=== PATIENT | male | born 1990 | race Caucasian/White ===

== ENCOUNTER 2021-04-16 02:20 | Emergency (ER) | payer OTHER ==
[~2021-04-16] VITALS: Ht 175.3 cm; Wt 99.8 kg
[2021-04-16 02:30] VITALS: BP 140/77
--- NOTE | 2021-04-16 02:33 | NUR ---
TO LOBBY A/W BED AMBULATORY
[2021-04-16] MEDS ORDERED: ACETAMINOPHEN EXTRA STRENGTH 500 MG TAB PO ONE (02:35)
--- NOTE | 2021-04-16 02:45 | NUR ---
PT C/O FEVER X 3 DAYS PT STATES FEVER SEEMS TO ONLY START AT NIGHT. PT DENIES DIZZINESS, V/D/N AND HEADACHE. MEDICAL HX: PRE HYPERTENSION AND PTSD MEDICATIONS: ROCKY PRIM, XANAX, MIRTAZIPINE NKA
--- NOTE | 2021-04-16 03:00 | NUR ---
PT AMBULATED TO BATHROOM TO GIVE URINE SAMPLE, URINE SAMPLE COLLECTED FOR URINE DIP.
[2021-04-16] MEDS ORDERED: NACL 0.9% 1,000 ML IV ONE (03:10)
--- NOTE | 2021-04-16 03:15 | NUR ---
CARLITOS AND FLU SWAB COLLECTED AND SENT TO LAB.
--- NOTE | 2021-04-16 03:35 | NUR ---
IV 20 G INSERTED IN LEFT AC AND NS STARTED.
[2021-04-16 03:57] LABS: BASOPHILS % (AUTO) 0.4 % (0.0-2.0); HEMATOCRIT 45.6 % (36-52); HEMOGLOBIN 16.2 g/dL (12.0-18.0); LYMPHOCYTES # (AUTO) 0.6 K/uL (2.0-11.5); LYMPHOCYTES % (AUTO) 12.9 % (20.5-51.1); MEAN CORPUSCULAR HEMOGLOBIN 33 pg (27-31); MEAN CORPUSCULAR HGB CONC 36 g/dL (33-37); MEAN CORPUSCULAR VOLUME 92.4 fL (80-94); MONOCYTES # (AUTO) 0.4 K/uL (0.8-1.0); MONOCYTES % (AUTO) 9.8 % (1.7-9.3); NEUTROPHILS # (AUTO) 3.4 K/uL (1.8-7.7); NEUTROPHILS % (AUTO) 76.9 % (42.2-75.2); PLATELET COUNT (AUTO) 132 K/uL (140-450); RED BLOOD CELL COUNT(AUTO) 4.94 MIL/uL (4.20-6.10); RED CELL DISTRIBUTION WIDTH 13.2 % (11.6-13.7); WHITE BLOOD COUNT (AUTO) 4.4 K/uL (4.8-10.8)
--- NOTE | 2021-04-16 04:01 | NUR ---
ORAL TEMP 98.4.
[2021-04-16 04:22] LABS: CARBON DIOXIDE 25.7 mmol/L (21-32); CREATININE 1.1 mg/dL (0.6-1.3); POTASSIUM 3.7 mmol/L (3.5-5.1)
[2021-04-16 04:31] LABS: ALBUMIN 3.9 g/dL (3.4-5.0); BILIRUBIN,DIRECT 0.1 mg/dL (0.0-0.3); TOTAL BILIRUBIN 0.6 mg/dL (0.0-1.0)
--- NOTE | 2021-04-16 04:50 | NUR ---
Patient discharged with v/s stable. Written and verbal after care instructions given and explained. Patient verbalized understanding. Ambulatory with steady gait. All questions addressed prior to discharge. Advised to follow up with PMD.
[2021-04-16 04:59] VITALS: BP 138/82
== END 2021-04-16 04:50 | disposition home or self-care (01) ==
LOC: MED 02:20
DX: U07.1 COVID-19 (principal)
CPT/HCPCS: 36415; 71045; 80048; 80076; 81002; 83690; 84484; 85025; 87426; 87804; 93005; 96360; 99285; J7030; Q0092

== ENCOUNTER 2021-04-19 19:06 | Observation (INO) | payer OTHER, SELFPAY ==
[~2021-04-19] VITALS: Ht 175.3 cm; Wt 99.8 kg
[2021-04-19 19:15] VITALS: BP 135/81
--- NOTE | 2021-04-19 20:40 | NUR ---
PT TAKEN TO BED 3
[2021-04-19 20:49] LABS: BASOPHILS % (AUTO) 0.2 % (0.0-2.0); HEMATOCRIT 49.2 % (36-52); HEMOGLOBIN 17.3 g/dL (12.0-18.0); LYMPHOCYTES # (AUTO) 0.3 K/uL (2.0-11.5); LYMPHOCYTES % (AUTO) 4.9 % (20.5-51.1); MEAN CORPUSCULAR HEMOGLOBIN 32 pg (27-31); MEAN CORPUSCULAR HGB CONC 35 g/dL (33-37); MEAN CORPUSCULAR VOLUME 92.4 fL (80-94); MONOCYTES # (AUTO) 0.3 K/uL (0.8-1.0); NEUTROPHILS # (AUTO) 5.8 K/uL (1.8-7.7); NEUTROPHILS % (AUTO) 90.9 % (42.2-75.2); PLATELET COUNT (AUTO) 167 K/uL (140-450); RED BLOOD CELL COUNT(AUTO) 5.33 MIL/uL (4.20-6.10); RED CELL DISTRIBUTION WIDTH 13.1 % (11.6-13.7); WHITE BLOOD COUNT (AUTO) 6.3 K/uL (4.8-10.8)
[2021-04-19 21:05] LABS: FIBRINOGEN > 500 mg/dL (200-400)
[2021-04-19 21:16] LABS: ANION GAP 17.1 (8-16); ASPARTATE AMINOTRANSFERASE 55 U/L (15-37); CHLORIDE 100 mmol/L (98-107); CREATININE 1.1 mg/dL (0.6-1.3); GFR ARICAN-AMERICAN 102 mL/min (>90); GLUCOSE 100 mg/dL (74-106); LACTATE DEHYDROGENASE 408 U/L (85-227); POTASSIUM 4.1 mmol/L (3.5-5.1); SODIUM SERUM 139 mmol/L (136-145); TOTAL BILIRUBIN 0.5 mg/dL (0.0-1.0); UREA NITROGEN, BLOOD 8 mg/dL (7-18)
--- NOTE | 2021-04-19 21:21 | NUR ---
30 YO/M BIB SELF W C/O OF WORSENING SOB AND DIFF BREATHING ONGOING X1 WEEK S/P +COVID RESULTS. PT ALSO CO GENERALIZED CHEST PAIN PRESSURE LIKE 11/21 NON-RAD, +BACK PAIN WHICH PT RELATES TO COUGHING, +GENERALIZED ABDOMINAL PAIN W AN EPISODE OF WATERY STOOL, + DIZZYNESS, FATIGUE, + FEVER. PT DENIES N/V/D. PT O2 SAT 95% ON RA, BREATHING EVEN AND UNLABORED. VSS. PT REPORTS TAKING ASA 325MG X3 TABS, + IBUPROFEN 800MG BOTH MEDS TAKEN AT 1000 TODAY. PT LAYING IN BED SUPINE LOCKED IN LOWEST POSITION W X2 SIDERAILS UP. BREATHING EVEN AND UNLABORED. NAD NOTED, WILL CONTINUE TO MONITOR. RT AT BEDSIDE. PMH: FIBROMYALGIA, PTSD, ANXIETY DISORDER, SCIATICA NKA
[2021-04-19 21:25] LABS: D-DIMER 269 ng/ml (0-400)
[2021-04-19] MEDS ORDERED: DEXAMETHASONE 10 MG/ML VIAL IVP ONE (21:45)
[2021-04-19] MEDS ORDERED: cefTRIAXone 2,000 MG in DEXTROSE 5% 100 ML IV ONE (21:45)
--- NOTE | 2021-04-19 22:00 | NUR ---
X-Ray at bedside.
[2021-04-19] MEDS ORDERED: cefTRIAXone 2,000 MG VIAL ONE (22:01)
[2021-04-19 22:31] LABS: APPEARANCE,URINE CLEAR (CLEAR); BILIRUBIN,URINE 1+ (NEGATIVE); BLOOD, URINE 1+ (NEGATIVE); COLOR,URINE YELLOW (YELLOW); LEUKOCYTE ESTERASE ,URINE NEGATIVE (NEGATIVE); NITRITE, URINE NEGATIVE (NEGATIVE); UGLUCOSE NEGATIVE (NEGATIVE)
[2021-04-19] MEDS ORDERED: ALPR0.5T2 PO (22:41)
[2021-04-19] MEDS ORDERED: MAG SULF 2000 MG/WATER PREMIX 50 ML IV PRN ×2 (22:50→23:00)
[2021-04-19] MEDS ORDERED: POTASSIUM CHLORIDE 10 MEQ TABER PO PRN ×2 (22:50→23:00)
[2021-04-19] MEDS ORDERED: KCL 20 MEQ/WATER INJ PREMIX 200 ML IV PRN ×2 (22:50→23:00)
[2021-04-19] MEDS ORDERED: ACETAMINOPHEN 325 MG TAB PO PRN ×2 (22:50→23:00)
[2021-04-19] MEDS ORDERED: AZITHROMYCIN 500 MG in DEXTROSE 5% 250 ML IV SCH ×2 (22:50→23:00)
[2021-04-19] MEDS ORDERED: ONDANSETRON 4 MG/2 ML VIAL IVP PRN ×2 (22:50→23:00)
[2021-04-19] MEDS ORDERED: MAGNESIUM OXIDE 400 MG TAB PO PRN ×2 (22:50→23:00)
[2021-04-19 22:51] LABS: RBC,URINE 0-5 /HPF (0-5); WBC,URINE 0-5 /HPF (0-5)
--- NOTE | 2021-04-19 23:10 | NUR ---
PT C/O PF FEELING HOT, TEMPORAL TEMP AT 103 F.
[2021-04-19] MEDS ORDERED: AZITHROMYCIN 500 MG INJ VIAL IV ONE (23:37)
--- NOTE | 2021-04-20 00:21 | NUR ---
PT APPEARS TO BE RESTING W EYES CLOSED. BREATHING EVEN AND UNLABORED. NAD NOTED, WILL CONTINUE TO MONITOR. VSS.
--- NOTE | 2021-04-20 01:30 | NUR ---
SPOKE W PT MOTHER TO PROVIDE STATUS ON PT STATUS.
--- NOTE | 2021-04-20 01:33 | NUR ---
PT MOTHER DROPPED OF TRAFFIC REPORTER FOR PT.
--- NOTE | 2021-04-20 02:14 | NUR ---
PT APPEARS TO BE RESTING W EYES CLOSED. BREATHING EVEN AND UNLABORED. NAD NOTED, WILL CONTINUE TO MONITOR. VSS.
--- NOTE | 2021-04-20 02:14 | NUR ---
Pt report given to CHARLES COLLINS. Transfer of care at this time.
--- NOTE | 2021-04-20 02:33 | NUR ---
PT DENIES ANY PAIN AT THIS TIME, PT REPORTS FEELING OK, NO LONGER FEELING HOT. PT REPORTS HE WAS ABLE TO GET SOME REST. VSS. BREATHING EVEN AND UNLABORED. NAD NOTED, WILL CONTINUE TO MONITOR.
--- NOTE | 2021-04-20 02:55 | NUR ---
Patient will be admitted to care of DR. SCHNEIDER. Admited to TELEMETRY. Will go to room 120A. Belongings list completed. Report to CHARLES COLLINS.
[2021-04-20 03:00] VITALS: BP 136/70
--- NOTE | 2021-04-20 03:30 | NUR ---
PT BROUGHT UP BY [facility] REPORT RECEIVED BY ER NURSE [facility] PT AOX4 ON ROOM AIR HERE FOR COVID PNA. PT HERE BEFORE TESTED POSITIVE AND CAME BACK DUE TO WORSENING SOB. WHEELED TO ROOM 120 AND AMBULATED WITH STEADY GAIT TO BED A. MRSA SWAB DONE. ADMISSION QUESTIONS ASKED. PT PLACED ON TELE AND CONTINUOUS PULSE O2. 02 REMAINS AT 95-96%. ALL ORDERED PRECAUTIONS IN PLACE.
[2021-04-20 05:58] LABS: HEMATOCRIT 46.2 % (36-52); HEMOGLOBIN 15.9 g/dL (12.0-18.0); LYMPHOCYTES # (AUTO) 0.3 K/uL (2.0-11.5); LYMPHOCYTES % (AUTO) 8.4 % (20.5-51.1); MEAN CORPUSCULAR HEMOGLOBIN 32 pg (27-31); MEAN CORPUSCULAR HGB CONC 34 g/dL (33-37); MEAN CORPUSCULAR VOLUME 93.5 fL (80-94); MONOCYTES # (AUTO) 0.2 K/uL (0.8-1.0); MONOCYTES % (AUTO) 4.1 % (1.7-9.3); NEUTROPHILS # (AUTO) 3.4 K/uL (1.8-7.7); NEUTROPHILS % (AUTO) 87.5 % (42.2-75.2); PLATELET COUNT (AUTO) 151 K/uL (140-450); RED BLOOD CELL COUNT(AUTO) 4.94 MIL/uL (4.20-6.10); WHITE BLOOD COUNT (AUTO) 3.9 K/uL (4.8-10.8)
--- NOTE | 2021-04-20 06:30 | NUR ---
ROUNDS DONE PT IN BED 02 REMAINS ABOUT 95-96% ON ROOM AIR. ALL REQUESTS ATTENDED BY STAFF AND CALL BARKER IN REACH.
[2021-04-20 06:39] LABS: ALBUMIN 3.4 g/dL (3.4-5.0); ANION GAP 14.1 (8-16); CARBON DIOXIDE 25.9 mmol/L (21-32); CHOL/HDL RATIO 4.2 (1-4.5); MAGNESIUM 2.4 mg/dL (1.8-2.4); TOTAL BILIRUBIN 0.3 mg/dL (0.0-1.0)
--- NOTE | 2021-04-20 07:25 | NUR ---
RECEIVED PATIENT FROM [facility]REATMENT INSTALLER NURSE FOR CONTINUITY OF CARE. A/A/O X4. ON TELE MONITOR. RESPIRATORY EVEN AND UNLABORED, ON ROOM AIR. NO SIGN OF DISTRESS NOTED. SKIN WARM, DRY, NON DIAPHORETIC. IV ON LEFT AC 20G, INTACT AND PATENT, SALINE LOCK. PATIENT DENIES ANY PAIN OR DISCOMFORT. ABLE TO MAKE NEED KNOWN. PLAN OF CARE DISCUSSED, PATIENT VERBALIZED UNDERSTANDING. PRECAUTION IN PLACE. CALL LIGHT WITHIN REACH. WILL CONTINUE TO MONITOR.
[2021-04-20 08:00] VITALS: BP 103/51
--- NOTE | 2021-04-20 08:48 | NUR ---
PATIENT HAS BEEN SCREENED AND CATEGORIZED HIGH NUTRITION RISK. PATIENT WILL BE SEEN WITHIN 1-2 DAYS OF ADMISSION. 04/20/21-04/21/[address]
[2021-04-20] MEDS ORDERED: ENOXAPARIN 40 MG/0.4 ML SYR SUBQ SCH ×2 (09:00)
--- NOTE | 2021-04-20 09:07 | NUR ---
PATIENT'S MOM CALL TO UPDATE PATIENT'S CONDITION. ALL QUESTIONS WERE ANSWERED.
[2021-04-20] MEDS: NACL 0.9% 1,000 ML IV SCH ×2 (09:21→18:20)
--- NOTE | 2021-04-20 09:21 | NUR ---
SCHEDULE MEDICATION GIVEN WITH EDUCATION, PATIENT VERBALIZED UNDERSTANDING. PATIENT TOLERATED WELL, NO SIGN OF DISTRESS NOTED. PRECAUTION IN PLACE. CALL LIGHT WITHIN REACH. WILL CONTINUE TO MONITOR.
--- NOTE | 2021-04-20 09:42 | NUR ---
ASSIST PATIENT TO GIVE HIS MOM THE BLACK BEYER. GAVE THE BLACK BEYER TO HIS MOM AT [facility].
--- NOTE | 2021-04-20 11:30 | NUR ---
PATIENT IS RESTING IN BED, NO SIGN OF DISTRESS NOTED, ON ROOM AIR. PRECAUTION IN PLACE. CALL LIGHT WITHIN REACH. WILL CONTINUE TO MONITOR.
[2021-04-20 12:00] VITALS: BP 136/99
--- NOTE | 2021-04-20 13:30 | NUR ---
PATIENT IS RESTING ON PRONE POSITION. NO SIGN OF DISTRESS NOTED. PRECAUTION IN PLACE. CALL LIGHT WITHIN REACH. WILL CONTINUE TO MONITOR.
[2021-04-20] MEDS ORDERED: ACET-1182 PO (13:55)
[2021-04-20] MEDS ORDERED: BARI2TAB PO (13:55)
[2021-04-20] MEDS ORDERED: AZIT250T3 PO (13:56)
--- NOTE | 2021-04-20 15:49 | NUR ---
PATIENT IS SLEEPING, CHEST RISE AND FALL, AROUSABLE TO VOICE. NO SIGN OF DISTRESS NOTED. PRECAUTION IN PLACE. CALL LIGHT WITHIN REACH. WILL CONTINUE TO MONITOR.
[2021-04-20 16:00] VITALS: BP 139/92
--- NOTE | 2021-04-20 17:00 | NUR ---
PATIENT IS AWAKE, RESTING IN BED, NO SIGN OF DISTRESS NOTED. CALL LIGHT WITHIN REACH. WILL CONTINUE TO MONITOR.
--- NOTE | 2021-04-20 18:26 | NUR ---
DISCHARGE EDUCATION GIVEN, PATIENT VERBALIZED UNDERSTANDING. ALL QUESTIONS WAS ANSWERED.
--- NOTE | 2021-04-20 19:00 | NUR ---
DISCHARGE PATIENT TO FAMILY MEMBER VIA WHEEL CHAIR. IV REMOVED, BLEEDING CONTROL. ID BAND REMOVED. RESPIRATORY EVEN AND UNLABORED, ON ROOM AIR. NO SIGN OF DISTRESS NOTED.
--- NOTE | 2021-04-23 08:40 | NUR ---
DC PLANNING: I RECEIVED A CALL FROM REESE (ER DIRECTOR) STATED PATIENT KENYETTA CHEN CALLED AND STATED HE DIDN'T GET THE MEDICATION. I CALLED [facility] IN [place] [phone] SPOKE WITH THE PHARMACIST STATED PATIENT PICKED UP THE MEDICATION ALREADY.
== END 2021-04-20 19:09 | disposition home or self-care (01) ==
LOC: MED 19:06 → MTU 23:15
PROVIDERS: ADMIT Internal Medicine Pulmonary Disease; ATTEND Internal Medicine Pulmonary Disease
DX: U07.1 COVID-19 (principal); J12.82 Pneumonia due to coronavirus disease 2019; J96.01 Acute respiratory failure with hypoxia; E86.0 Dehydration; R00.0 Tachycardia, unspecified; R42 Dizziness and giddiness
CPT/HCPCS: 36415; 36600; 71045; 80053; 80061; 81001; 82550; 82553; 82803; 83036; 83605; 83615; 83735; 84484; 85025; 85379; 85384; 85610; 85730; 87040; 87081; 93005; 96361; 96365; 96367; 96372; 96375; 99291; G0378; J0456; J0696; J1100; J1650; U0003; J7060

== ENCOUNTER 2022-05-10 11:57 | Emergency (ER) | payer OTHER ==
[~2022-05-10] VITALS: Ht 175.3 cm; Wt 108.0 kg
[~2022-05-10 11:57] MED LIST: ACET-1182 PO; ALPR0.5T2 PO; AZIT250T3 PO; BARI2TAB PO
[2022-05-10 12:15] VITALS: BP 140/75
--- NOTE | 2022-05-10 12:39 | NUR ---
BIB SELF C/O COUGH, CONGESTION X 2 DAYS AND C/O LORE EAR PAIN X 3 DAYS. DENIES TRAUMA RECENTLY. COVID TESTED NEGATIVE 2 DAYS AGO. PT HAD EAR PROBLEM THE BEGINNING OF APRIL & GOT PREDNISONE & AMOXICILLIN.
[2022-05-10] MEDS ORDERED: SUD30 PO (13:05)
[2022-05-10] MEDS ORDERED: AMOX-999 PO (13:05)
[2022-05-10] MEDS ORDERED: IBUP-1842 PO (13:05)
[2022-05-10 13:20] VITALS: BP 140/75
--- NOTE | 2022-05-10 13:21 | NUR ---
Patient discharged with v/s stable. Written and verbal after care instructions given and explained. Patient alert, oriented and verbalized understanding of instructions. Ambulatory with steady gait. All questions addressed prior to discharge. ID band removed. Patient advised to follow up with PMD. Rx of ubaldo higgins sudafed (sent) given. Patient educated on indication of medication including possible reaction and side effects. Opportunity to ask questions provided and answered. work note given
== END 2022-05-10 13:21 | disposition home or self-care (01) ==
LOC: MED 11:57
DX: H66.93 Otitis media, unspecified, bilateral (principal); R09.89 Other specified symptoms and signs involving the circulatory and respiratory systems; F41.9 Anxiety disorder, unspecified; Z90.49 Acquired absence of other specified parts of digestive tract; Z98.890 Other specified postprocedural states; Z79.899 Other long term (current) drug therapy
CPT/HCPCS: 99283

== ENCOUNTER 2024-01-25 01:00 | Emergency (ER) | payer OTHER ==
[~2024-01-25] VITALS: Ht 175.3 cm; Wt 98.9 kg
[~2024-01-25 01:00] MED LIST changes: +AMOX-999 PO; +IBUP-1842 PO; +SUD30 PO
[2024-01-25 01:02] VITALS: BP 146/83; PULSE 100; RESP 16; TEMP 98.2; O2SAT 97
[2024-01-25 01:20] VITALS: BP 146/83; PULSE 100; RESP 16; TEMP 98.2; O2SAT 97
[2024-01-25] MEDS ORDERED: NAPR-337 PO (02:45)
== END 2024-01-25 01:20 | disposition home or self-care (01) ==
LOC: MED 01:00
DX: R51.9 Headache, unspecified (principal); Z90.89 Acquired absence of other organs; Z79.899 Other long term (current) drug therapy
CPT/HCPCS: 99283